=== PATIENT | female | born 1955 | race African-American/Black ===

== ENCOUNTER 2025-06-10 21:25 | Emergency (ER) | payer OTHER | END 2025-06-10 22:52 | disposition home or self-care (01) | LOC: MADERS 21:25 | DX: S16.1XXA Strain of muscle, fascia and tendon at neck level, initial encounter (principal); S29.012A Strain of muscle and tendon of back wall of thorax, initial encounter; I10 Essential (primary) hypertension; V89.2XXA Person injured in unspecified motor-vehicle accident, traffic, initial encounter | CPT/HCPCS: 71045; 72125; 72128 ==